=== PATIENT | male | born 1990 ===

== ENCOUNTER 2023-03-13 20:55 | Emergency (ER) | payer OTHER ==
[~2023-03-13] VITALS: Ht 185.4 cm; Wt 81.7 kg
[2023-03-13 21:02] VITALS: BP 146/96
[2023-03-13 22:47] LABS: U Amphetamine Screen Not Detected; U Barbituate Screen Not Detected; U Benzodiazapine Screen Not Detected; U Buprenorphine Screen Not Detected; U Cannabinoids Screen Not Detected; U Cocaine Screen Not Detected; U Methadone Screen Not Detected; U Methamphetamine Screen Not Detected; U Opiates Screen Not Detected; U Oxycodone Screen Not Detected; U Phencyclidine Screen Not Detected; U Propoxyphene Screen Not Detected
== END 2023-03-13 23:05 | disposition home or self-care (01) ==
LOC: ER 20:55
PROVIDERS: Student in an Organized Health Care Education/Training Program
DX: Z00.00 Encounter for general adult medical examination without abnormal findings (principal); F17.210 Nicotine dependence, cigarettes, uncomplicated
CPT/HCPCS: 96372; 99283; J1885